=== PATIENT | male | born 1975 | race Caucasian/White ===

== ENCOUNTER 2017-04-15 06:45 | Emergency (ER) | payer MEDICAID ==
[~2017-04-15] VITALS: Ht 175.3 cm; Wt 68.0 kg
[2017-04-15 06:47] VITALS: BP 132/92
== END 2017-04-15 08:15 | disposition home or self-care (01) ==
LOC: ED 08:09
DX: S93.491A Sprain of other ligament of right ankle, initial encounter (principal); X50.1XXA Overexertion from prolonged static or awkward postures, initial encounter; Y93.89 Activity, other specified; Y92.009 Unspecified place in unspecified non-institutional (private) residence as the place of occurrence of the external cause; Y99.9 Unspecified external cause status
CPT/HCPCS: 99284